=== PATIENT | male | born 1960 | race African-American/Black ===

== ENCOUNTER 2017-12-18 08:32 | Emergency (ER) | payer MEDICAID, SELFPAY ==
[2017-12-18 08:33] VITALS: BP 110/82; PULSE 62; RESP 13; TEMP 36.9; O2SAT 97; BMI 27.6
--- NOTE | 2017-12-18 08:51 | CT_ITS ---
STUDY: CT BRAIN WITHOUT CONTRAST REASON FOR EXAM: Male, 57 years old. Worsening dizziness and weakness. RADIATION DOSAGE (If Supplied By Facility): CTDIvol = ( 44.99 ) mGy, DLP = ( 829.85 ) mGycm TECHNIQUE: Transaxial CT imaging of the brain was performed without administration of intravenous contrast material. Individualized dose optimization techniques were used for this CT. COMPARISON: Comparison is made with prior study dated November 24, 2017. FINDINGS: A scalp hematoma is seen overlying the superior aspect of the left frontal bone. Normal calvarium. Normal size ventricles and extra-axial spaces for the patient's age. Normal white matter tracts of the cerebral hemispheres. Normal basal ganglia and thalami. Normal brainstem. Normal cerebellum. There is no intracranial hemorrhage. There are no findings of an acute ischemic infarction. Normal visualized paranasal sinuses. CT/Brain/Head without Contrast IMPRESSION: Stable scalp hematoma overlying the left frontal bone. Electronically Signed: Benigno Fu MD at 9:33 EST Tel [phone], Service support ,
--- NOTE | 2017-12-18 08:53 | ED.DCSUM_ITS ---
- ER Visit Summary Date of Service: 12/18/17 Chief Complaint: Vertigo History of Present Illness: The patient is a 57 M who reports that he has vertigo that began this morning. It is increased with movement of his head. He reports that he has had left ear pain for a while. States he has a headache that stated 10 severity. This began yesterday and is been gradually worsening. It is occipital in location. He denies any slurred speech or double vision. He has had generalized weakness. No localized weakness. No numbness. There has not been associated diaphoresis, nausea, or vomiting. No recent injury to his head. No fever, chills, sore throat, chest pain, or shortness of breath. Physical Examination: Vitals: Stable. Afebrile. General: Well-nourished and well-developed. Head: Normocephalic atraumatic. Neck: Supple, no lymphadenopathy. No JVD. Nontender. Cardiovascular: Regular rate and rhythm. No murmurs. Respiratory: No respiratory distress. Clear to auscultation bilaterally. Abdominal: Soft, nontender, nondistended, normal bowel sounds. No guarding, rebound, or peritoneal signs. Back: Nontender. Extremities: Nontender, no edema. Skin: Normal color, no rash. Neurologic: Alert and oriented ?3. Cranial nerves II through XII are intact. Normal strength and sensation. No nystagmus. Psych: Normal affect. Test Results: CBC is marked for white count of 3.1 and hematocrit of 39.8. Chem -7 is marked for glucose 117. CT brain shows no acute disease. He does have a stable scalp hematoma over the left frontal bone. Emergency Department Course and Treatment: Patient had an IV placed. He is given a liter of normal saline. He was given Toradol, Zofran, and Antivert. He feels much improved and is resting comfortably. Treatment Plan: He will be discharged with Zofran and Antivert. Instructed to follow-up his primary care physician 1-2 days if not improving. Return to the emergency department for any worsening symptoms. Disposition: To home in improved and stable condition. Impression: 1. Vertigo, acute. This note was generated with [employer] software. It may contain incorrect words, spelling, and punctuation that were not noted in review of the chart prior to signing ED Disposition - Plan for ED Patient: Chief Complaint: Dizziness Instructions: ED Dizziness [facility] Prescriptions: Ondansetron [Zofran Odt] 4 mg PO Q8H PRN PRN #10 tablet PRN Reason: Nausea Meclizine HCl [Antivert] 25 mg PO 4X/DAY PRN PRN #20 tablet PRN Reason: Dizziness Referrals: Doctor,Your [STAFF PHYSICIAN] - 1-2 Days if not improving
[2017-12-18 09:02] LABS: Absolute Lymphocyte Count 1.18 X10^3/ul (0.83-4.51); Absolute Neutrophil Count 1.6 X10^3/uL (2.0-7.7); Basophil# 0.02 X10^3/uL; Basophil% 0.6 % (0-1); Eosinophil# 0.15 X10^3/uL; Eosinophils% 4.8 % (0-5); Hematocrit 39.8 % (40-54); Lymphocyte # 1.18 X10^3/ul (4.0); Lymphocyte % 37.6 % (19-41); Mean Corp Hgb Conc 32.7 g/gl (32-36); Mean Corpuscular Hgb 31.4 pg (27.0-32.0); Mean Corpuscular Volume 96.1 fL (80-94); Mean Platelet Vol. 8.5 fl (6.2-12.0); Monocyte# 0.23 X10^3/uL; Monocyte% 7.3 % (0-10); Neutrophil # 1.56 X10^3/uL (2.7-7.7); Neutrophil % 49.7 % (47-70); POSITIVE COUNT NO; POSITIVE DIFFERENTIAL NO; POSITIVE MORPHOLOGY NO; Platelet Count 193 K/mm3 (150-450); RBC Distribution Width CV 12.9 % (11.6-14.6); RBC Distribution Width SD 45.1 fl (35.1-43.9); Red Blood Count 4.14 M/mm3 (4.6-6.2); White Blood Count 3.1 K/mm3 (4.4-11.0)
[2017-12-18] MEDS: 0.9% Normal Saline 1,000 ML 1000 ML IV (09:03)
[2017-12-18] MEDS: Meclizine 12.5 MG Tablet 50 MG PO (09:03)
[2017-12-18] MEDS: Ketorolac 30 MG/ML Syringe IV (09:03)
[2017-12-18] MEDS: Ondansetron 4 MG/2 ML Vial IV (09:03)
[2017-12-18 09:06] LABS: Anion Gap 7 (5-15); BUN 12 mg/dL (7-18); BUN/Creat Ratio 14.2 RATIO (10-20); Calcium,Total 8.6 mg/dL (8.5-10.1); Chloride 106 mmol/L (98-107); Creatinine, Serum 0.85 mg/dL (0.70-1.30); EST Glomerular Filtration Rate 99 mL/min (>60); Est Glom Filt Rate - Afr Amer 120 mL/min (>60); Estimated Creatinine Clearance 102.12 ml/min; Glucose 117 mg/dL (70-110); Potassium 3.7 mmol/L (3.5-5.1); Sodium Level 140 mmol/L (136-145)
[2017-12-18 09:53] VITALS: BP 108/76; BP 112/84; BP 115/79; PULSE 71; PULSE 73; PULSE 78
[2017-12-18 09:54] VITALS: BP 112/69; PULSE 75; RESP 16; O2SAT 97
== END 2017-12-18 09:58 | disposition home or self-care (01) ==
LOC: ED 08:55
PROVIDERS: Emergency Provider Emergency Medicine
DX: R42 Dizziness and giddiness (principal); Z72.0 Tobacco use
CPT/HCPCS: 70450; 80048; 85025; 96361; 96374; 96375; 99285; J7030; A4216; J2405

== ENCOUNTER 2018-01-05 19:59 | Emergency (ER) | payer MEDICAID, SELFPAY ==
[2018-01-05 20:00] VITALS: BP 128/107; PULSE 70; RESP 14; TEMP 36.6; O2SAT 97; BMI 27.6
[2018-01-05 20:32] LABS: Absolute Lymphocyte Count 1.93 X10^3/ul (0.83-4.51); Absolute Neutrophil Count 1.7 X10^3/uL (2.0-7.7); Basophil# 0.03 X10^3/uL; Basophil% 0.7 % (0-1); Eosinophil# 0.27 X10^3/uL; Eosinophils% 6.2 % (0-5); Hematocrit 38.6 % (40-54); Hemoglobin 13.1 g/dl (13.0-16.5); Lymphocyte # 1.93 X10^3/ul (4.0); Lymphocyte % 44.2 % (19-41); Mean Corp Hgb Conc 33.9 g/gl (32-36); Mean Corpuscular Hgb 32.6 pg (27.0-32.0); Mean Platelet Vol. 8.2 fl (6.2-12.0); Monocyte# 0.42 X10^3/uL; Monocyte% 9.6 % (0-10); Neutrophil # 1.71 X10^3/uL (2.7-7.7); Neutrophil % 39.1 % (47-70); Platelet Count 206 K/mm3 (150-450); RBC Distribution Width CV 12.3 % (11.6-14.6); RBC Distribution Width SD 42.3 fl (35.1-43.9); Red Blood Count 4.02 M/mm3 (4.6-6.2); White Blood Count 4.4 K/mm3 (4.4-11.0)
[2018-01-05 20:38] LABS: POSITIVE COUNT NO; POSITIVE DIFFERENTIAL NO; POSITIVE MORPHOLOGY NO
[2018-01-05 20:44] LABS: Anion Gap 8 (5-15); BUN 11 mg/dL (7-18); Calcium,Total 8.3 mg/dL (8.5-10.1); Chloride 107 mmol/L (98-107); Creatinine, Serum 0.78 mg/dL (0.70-1.30); EST Glomerular Filtration Rate 109 mL/min (>60); Est Glom Filt Rate - Afr Amer 131 mL/min (>60); Estimated Creatinine Clearance 111.29 ml/min; Glucose 108 mg/dL (74-106); Potassium 3.3 mmol/L (3.5-5.1); Sodium Level 142 mmol/L (136-145)
--- NOTE | 2018-01-05 20:55 | CT_ITS ---
STUDY: CT ABDOMEN AND PELVIS WITHOUT CONTRAST REASON FOR EXAM: Male, 57 years old. Abdominal pain RADIATION DOSAGE (If Supplied By Facility): CTDIvol = ( 9.54 ) mGy, DLP = ( 483.74 ) mGycm TECHNIQUE: Transaxial images were obtained from the dome of the diaphragm to the symphysis pubis without oral contrast, and without intravenous contrast. Sagittal and coronal images were reconstructed. COMPARISON: None. FINDINGS: The visualized lung bases are unremarkable. The visualized portions of the heart are within normal limits. Normal liver. Normal gallbladder and extrahepatic biliary system. Normal spleen. Normal pancreas. Normal bilateral adrenal glands. Normal right kidney. Normal left kidney. Normal visualized stomach. Normal small intestine. Stool throughout the colon. The appendix is visualized and appears normal. There are calcifications of the abdominal aorta and vascular structures. This is consistent for atherosclerotic disease. There is no abdominal aortic aneurysm. Normal inferior vena cava. Subcentimeter mesenteric lymph nodes. Normal urinary bladder. There are prostatic calcifications. Normal abdominal wall. There are degenerative changes of the osseous structures. Loss of intervertebral disc height at L5-S1. Vacuum disc phenomenon at L5-S1. CT/Abdomen/Pelvis without Cont IMPRESSION: CONSTIPATION There are calcifications of the abdominal aorta. This is consistent for atherosclerotic disease. There is no abdominal aortic aneurysm. Other findings as above. Electronically Signed: David Knox MD at 22:10 EST , Service support ,
--- NOTE | 2018-01-05 20:55 | EKG12_ITS ---
Test Reason : Blood Pressure : / mmHG Vent. Rate : 065 BPM Atrial Rate : 065 BPM P-R Int : 176 ms QRS Dur : 114 ms QT Int : 416 ms P-R-T Axes : 053 017 008 degrees QTc Int : 432 ms Normal sinus rhythm Nonspecific T wave abnormality Abnormal ECG Confirmed by [facility] PRICE, KAY ([id number]), acquisition editor SANDRA LE ([id number] on 01/08/2018 12:53:21 PM Referred By: FLOYD Confirmed By:KAY HANKINS MD
[2018-01-05] MEDS: Ondansetron 4 MG/2 ML Vial IV (21:04)
[2018-01-05] MEDS: 0.9% Normal Saline 1,000 ML 1000 ML IV (21:04)
[2018-01-05 21:29] LABS: AST(SGOT) 31 U/L (15-37); Alanine Aminotransfer ALT/SGPT 27 U/L (16-61); Albumin, Serum 3.6 g/dL (3.2-5.0); Alkaline Phosphatase 97 U/L (45-117); Bilirubin, Direct 0.14 mg/dL (0.00-0.30); Globulin 3.7 g/dL (2.2-4.2); Lipase 221 U/L (73-393); Protein, Total 7.3 g/dL (6.4-8.2)
[2018-01-05 22:03] LABS: Alcohol, Blood (Medical)-Serum < 3.0 mg/dL
[2018-01-05 22:22] VITALS: BP 116/76; PULSE 68; RESP 12; O2SAT 95
[2018-01-05] MEDS: 0.9% Normal Saline 1,000 ML 999 ML IV (22:33)
--- NOTE | 2018-01-05 22:55 | NURSING ---
pt walked in hallway with walker. gait steady. notified
--- NOTE | 2018-01-05 23:10 | ED.VISSUMM ---
- ER Visit Summary Date of Service: 01/05/18 Chief Complaint: Abdominal pain History of Present Illness: The patient is a 57 M who presents with abdominal pain. EMS arrived due to 911 hang-up. The patient was found semi-responsive complaining of abdominal pain and confused. Patient states he has been having abdominal pain for a month. He has had intermittent nausea vomiting. He has had intermittent diarrhea and constipation. He was diagnosed with colitis by his primary care physician in [place]. He reports chills and sweats but no fevers. He denies any chest pain shortness of breath rashes. Physical Examination: Afebrile initial blood pressure 128/107 vitals otherwise normal Heart regular rate and rhythm Lungs are clear Abdomen soft he does have some diffuse nonfocal abdominal tenderness without guarding without rebound and he is nondistended On initial examination he is drowsy/somnolent however able to answer questions appropriately No focal or lateralizing neurological deficits Test Results: EKG shows normal sinus rhythm at a rate of 63 with some lateral T-wave flattening nonspecific changes. CT of the abdomen and pelvis is unremarkable. CBC CMP lipase troponin unremarkable. Alcohol negative. Emergency Department Course and Treatment: Treated with IV fluids here. On reevaluation is resting comfortably. As have a history of vasovagal syncope. He is much more alert and able to answer all questions appropriately. He is alert and oriented ?3. He was able to ambulate with a walker. He would not provide a urine specimen but states that he feels better and at this point would like to be discharged home. He was advised to follow-up with his primary care physician. He understands to return for new or worsening symptoms. He was discharged. Treatment Plan: [] Disposition: Discharge Impression: Abdominal pain This note was generated with [employer] dictation software. It may contain incorrect words, spelling, and punctuation that were not noted in review of the chart prior to signing ED Disposition - Plan for ED Patient: Chief Complaint: Abd Pain Referrals: [facility] Doctor,Out of [Primary Care Provider] -
--- NOTE | 2018-01-05 23:16 | ED.DCSUM_ITS ---
- ER Visit Summary Date of Service: 01/05/18 Chief Complaint: Abdominal pain History of Present Illness: The patient is a 57 M who presents with abdominal pain. EMS arrived due to 911 hang-up. The patient was found semi-responsive complaining of abdominal pain and confused. Patient states he has been having abdominal pain for a month. He has had intermittent nausea vomiting. He has had intermittent diarrhea and constipation. He was diagnosed with colitis by his primary care physician in [place]. He reports chills and sweats but no fevers. He denies any chest pain shortness of breath rashes. Physical Examination: Afebrile initial blood pressure 128/107 vitals otherwise normal Heart regular rate and rhythm Lungs are clear Abdomen soft he does have some diffuse nonfocal abdominal tenderness without guarding without rebound and he is nondistended On initial examination he is drowsy/somnolent however able to answer questions appropriately No focal or lateralizing neurological deficits Test Results: EKG shows normal sinus rhythm at a rate of 63 with some lateral T- wave flattening nonspecific changes. CT of the abdomen and pelvis is unremarkable. CBC CMP lipase troponin unremarkable. Alcohol negative. Emergency Department Course and Treatment: Treated with IV fluids here. On reevaluation is resting comfortably. As have a history of vasovagal syncope. He is much more alert and able to answer all questions appropriately. He is alert and oriented ?3. He was able to ambulate with a walker. He would not provide a urine specimen but states that he feels better and at this point would like to be discharged home. He was advised to follow-up with his primary care physician. He understands to return for new or worsening symptoms. He was discharged. Treatment Plan: [] Disposition: Discharge Impression: Abdominal pain This note was generated with [employer] dictation software. It may contain incorrect words, spelling, and punctuation that were not noted in review of the chart prior to signing ED Disposition - Plan for ED Patient: Chief Complaint: Abd Pain Referrals: [facility] Doctor,Out of [Primary Care Provider] -
--- NOTE | 2018-01-05 23:16 | ED.DEP ---
ED Disposition - Plan for ED Patient: Chief Complaint: Abd Pain Instructions: ED Abdominal Pain Unkn Cause Male Referrals: [facility] Doctor,Out of [Primary Care Provider] -
--- NOTE | 2018-01-05 23:30 | ED.RN ---
PT GIVEN WRITTEN AND VERBAL DISCHARGE INSTRUCTIONS. PT VERBALIZES UNDERSTANDING OF INSTRUCTIONS. THIS RN OFFERED TO CALL PT CAB TO GET HOME OR HELP FIND A RIDE AND PT REFUSED. PT WHEELED IN WHEELCHAIR TO WAITING ROOM AND PT AMBULATED FROM WAITING ROOM OUT THE DOOR WITHOUT DIFFICULTY. PT USUALLY WALKS WITH WALKER BUT SAYS HE DOES NOT USE IT ALL THE TIME. PT IV D/C AND COVERED WITH 2X2 GAUZE DRESSING. PT LEFT WITH CELL PHONE IN HAND.
== END 2018-01-05 23:33 | disposition home or self-care (01) ==
LOC: ED 20:47
PROVIDERS: Emergency Provider Emergency Medicine
DX: R10.84 Generalized abdominal pain (principal); I10 Essential (primary) hypertension; E78.00 Pure hypercholesterolemia, unspecified; Z72.0 Tobacco use; Z79.51 Long term (current) use of inhaled steroids; Z79.82 Long term (current) use of aspirin; Z79.02 Long term (current) use of antithrombotics/antiplatelets; Z79.899 Other long term (current) drug therapy
CPT/HCPCS: 74176; 80048; 80076; 80320; 83690; 84484; 85025; 93005; 96361; 96374; 99285; J7030; A4216; G0480; J2405